=== PATIENT | male | born 1995 | race Caucasian/White ===

== ENCOUNTER 2016-09-30 00:14 | Emergency (ER) | payer OTHER ==
[~2016-09-30] VITALS: Ht 175.3 cm; Wt 117.9 kg
[~2016-09-30 00:14] MED LIST: AMOXICILLIN500 M3 PO; BACTRIM DS TAB1 EACH PO
[2016-09-30 00:23] VITALS: BP 126/77
--- NOTE | 2016-09-30 01:01 | ED PSYCHIATRIC COMPLAINT ---
History of Present Illness General Chief Complaint: Psychiatric Related Complaint Stated Complaint: BIBA, PSYCH EVAL Source: patient, family, old records, EMS, police Exam Limitations: no limitations Vital Signs & Intake/Output Vital Signs & Intake/Output Vital Signs Date Time Temp Pulse Resp B/P B/P Pulse O2 O2 Flow FiO2 Mean Ox Delivery Rate 09/30 0023 97.3 87 20 126/77 97 Room Air Allergies Coded Allergies: NO KNOWN ALLERGIES (12/14/11) Reconcile Medications Amoxicillin 500 MG TABLET 1 TAB PO TID CELLULITIS Sulfamethoxazole/Trimethoprim (Bactrim Ds Tablet) 1 EACH TABLET 1 TAB PO BID CELLULITIS Triage Note: PT BIBA FROM HOME ON PEER. PT PLACED ON PEER AFTER MAKING SI COMMENTS VIA TEXT TO FRIEND. PT WOULD NOT SHOW TEXT MESSAGES TO POLICE ON SCENE BECAUSE HE DIDN'T WANT THE POLICE TO GO THROUGH HIS PHONE. PT WAS TEXTING HIS FRIEND FOR ADVISED AFTER BECOMING UPSET DURING THE AFTERNOON ON 09/29/16. WHEN ASKED WHAT THE CAUSE OF HIM BEING UPSET WAS HE REPLIED "NOT ANYONES BUISINESS". PT STATED HE TOLD HIS FRIEND THAT HE WAS GOING TO "TAKE PILLS" AND THEN FELL ASLEEP FOR APPROXIMATELY ONE HOUR. PT WAS THEN WOKEN UP BY THE POLICE. PT DENIED HAVING THE INTENTION TO COMMIT SUICIDE BY TAKING PILLS. PT DENIED SI/HI. PT DENIED ETOH AND ILLICIT DRUG USE. PT INFORMED OF POLICY TO CHANGE AND BE EVALUATED AND BECAME AGGITATED. AFTER INFORMING PT REASON FOR EVALUATION HE AGREED. SECURITY AT BEDSIDE FOR WANDING. Triage Nurses Notes Reviewed? yes Onset: Just prior to arrival Duration: hour(s):, better, gone now Timing: recent history Severity: moderate Associated Symptoms: anxiety, impaired concentration, suicidal ideation HPI: Several hours prior to admission patient had argument with ex-girlfriend. He contacted another ex-girlfriend then made threats of overdose and suicidal ideation. She called police and they went to his home. He denies fever chills nausea vomiting diarrhea abdominal pain chest pain shortness breath headache dysuria rash bleeding suicidal ideation intent homicidal ideation hallucination. Past History Travel History Traveled to [place] past 21 day No Medical History Any Pertinent Medical History? see below for history Neurological: NONE EENT: NONE Cardiovascular: hypertension Respiratory: NONE Gastrointestinal: NONE Hepatic: NONE Renal: NONE Musculoskeletal: NONE Psychiatric: opioid dependence Endocrine: NONE Blood Disorders: NONE Cancer(s): NONE GROUP HOME WORKER/Reproductive: NONE Isolation History: Standard Surgical History Surgical History: non-contributory Psychosocial History Who do you live with Other (see notes) What is your primary language Wolof Tobacco Use: Refused to answer ETOH Use: denies use Illicit Drug Use: denies illicit drug use Family History Hx Contributory? No Review of Systems Review of Systems Constitutional: Reports: no symptoms. EENTM: Reports: no symptoms. Respiratory: Reports: no symptoms. Cardiovascular: Reports: no symptoms. GI: Reports: no symptoms. Genitourinary: Reports: no symptoms. Musculoskeletal: Reports: no symptoms. Skin: Reports: no symptoms. Neurological/Psychological: Reports: see HPI, anxiety, confusion. Hematologic/Endocrine: Reports: no symptoms. Immunologic/Allergic: Reports: no symptoms. All Other Systems: Reviewed and Negative Physical Exam Physical Exam General Appearance: well developed/nourished, alert, awake, anxious, mild distress Head: atraumatic, normal appearance Eyes: Bilateral: normal appearance, PERRL, EOMI. 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 yes 1 Previous Attempts/Psych Care yes 1 Excessive Ethanol/Drug Use? yes 1 Rational Thinking Loss? yes 2 Single//? yes 1 Social Support? has support 0 Total 6 SAD PERSONS Done? yes Progress Differential Diagnosis: drug intoxication, drug overdose, drug withdrawal, electrolyte abnormality, hypoglycemia Plan of Care: Orders Procedure Date/time Status Regular Diet 09/30 B Active Continuous Observation Monitor 10/01 39 Active URINE DRUG SCREEN FOR ER ONLY 10/01 39 Complete ACETOMINOPHEN 10/01 39 Complete SALICYLATE 10/01 39 Complete ETHANOL 10/01 39 Complete COMPREHENSIVE METABOLIC PANEL 10/01 39 Complete CBC WITHOUT DIFFERENTIAL 10/01 39 Complete ED CRISIS PSYCH CONSULT 10/01 39 Active Laboratory Tests 09/30/16 0123: Anion Gap 13, Estimated GFR > 60, BUN/Creatinine Ratio 12.0, Glucose 108 H, Calcium 10.2, Total Bilirubin 0.5, AST 36, ALT 64, Alkaline Phosphatase 48, Total Protein 7.6, Albumin 4.5, Globulin 3.1, Albumin/Globulin Ratio 1.5, CBC w Diff NO MAN DIFF REQ, RBC 4.60 L, MCV 90.2, MCH 30.7, RDW 14.4, MPV 9.3, Gran % 52.7, Lymphocytes % 36.8, Monocytes % 5.2, Eosinophils % 4.0, Basophils % 1.3, Absolute Granulocytes 5.4, Absolute Lymphocytes 3.8 H, Absolute Monocytes 0.5, Absolute Eosinophils 0.4, Absolute Basophils 0.1, PUBS MCHC 34.0, Salicylates < 1.0, Acetaminophen < 10.0 L, Serum Alcohol < 10.0 09/30/16 0103: Urine Opiates Screen < 100.00, Methadone Screen > 735 H, Barbiturate Screen 64, Ur Phencyclidine Scrn < 6.00, Amphetamines Screen 195, U Benzodiazepines Scrn > 800 H, Urine Cocaine Screen > 1000 H, Urine Cannabis Screen 76.90 H Comments: Patient currently at drug rehabilitation IOP with fear of missing today's appointment and being thrown out of the program and put in the fpc. He is reticent about his text message. His mother vouches for his irresponsibility and will take responsibility for his safety. Departure Departure Time of Disposition: 158 Disposition: HOME OR SELF CARE Condition: Stable Clinical Impression Primary Impression: Polysubstance abuse Secondary Impressions: Impulse control disorder Referrals: PATIENT HAS NO PRIMARY CARE DR (PCP/Family) Departure Forms: General Discharge Information
[2016-09-30 01:28] LABS: ABSOLUTE BASOPHIL COUNT 0.1 /CUMM (0.0-0.2); ABSOLUTE EOSINOPHIL COUNT 0.4 /CUMM (0.0-0.7); ABSOLUTE GRANULOCYTE CT 5.4 /CUMM (1.4-6.5); ABSOLUTE LYMPH COUNT 3.8 /CUMM (1.2-3.4); ABSOLUTE MONOCYTE COUNT 0.5 /CUMM (0.10-0.60); BASOPHIL % 1.3 % (0.0-2.0); GRANULOCYTE % 52.7 % (42.2-75.2); HEMATOCRIT 41.5 % (42-52); MEAN CORPUSCULAR HGB 30.7 PG (27.0-31.0); MEAN CORPUSCULAR VOLUME 90.2 FL (80.0-94.0); MEAN PLATELET VOLUME 9.3 FL (7.4-10.4); PLATELET COUNT 187 /CUMM (130-400); RBC DISTRIBUTION WIDTH 14.4 % (11.5-14.5); WHITE BLOOD CELL COUNT 10.3 /CUMM (4.8-10.8)
== END 2016-09-30 02:20 ==
LOC: ERH 00:14
PROVIDERS: Emergency Medicine
DX: F19.10 Other psychoactive substance abuse, uncomplicated (principal); F63.9 Impulse disorder, unspecified
CPT/HCPCS: 80307; G0480